=== PATIENT | female | born 1970 | race Caucasian/White ===

== ENCOUNTER 2019-05-31 19:46 | Emergency (ER) | payer OTHER ==
[2019-05-31 19:49] VITALS: BP 150/74; PULSE 68; TEMP 97.9; BMI 32.8
[2019-05-31] MEDS ORDERED: KETOROLAC TROMETHAMINE 30 MG/1 ML VIAL IVPUSH ONE (20:08)
[2019-05-31] MEDS ORDERED: SODIUM CHLORIDE 1,000 ML IV STA (20:08)
--- NOTE | 2019-05-31 20:08 | PDOC ---
History of Present Illness - General Chief Complaint: Pain, Acute Stated Complaint: SEND BY URGENT CARE/ABD PAIN Time Seen by Provider: 05/31/19 19:58 History Source: Patient Exam Limitations: No Limitations - History of Present Illness Initial Comments: Cynthia Quarles is a 48 yo obese F who denies having any pmh who presents to the [facility] er from urgent care saying she thinks she has a kidney stone. She endorses left lower flank pain with radiation to her groin. She has no personal hx of kidney stones but she has a strong family hx of kidney stones in her brother, sister and father. the patient states she thinks her urine looks dark as well. She also endorses dysuria, frequency, and urgency. The patient states that her symptoms have been slowly worsening over the past week. She endorses a fever this past but not since. She has not taken any meds for her pain or fever as she doesn't like taking medications in general. The patient states that she had an US earlier today which showed mild hydronephrosis and was referred here to get a CT scan. Denies chest pain, SOB, difficulty breathing, headache, nausea, vomiting, blurry vision, leg swelling, history of STDs [place] [facility] [place]: chole[place] Social Hx: Denies smoking, drinking, or other substance usage Allergies: NKA, NKDA Past History - Past Medical History Allergies/Adverse Reactions: Allergies Allergy/AdvReac Type Severity Reaction Status Date / Time No Known Allergies Allergy Verified 05/31/19 19:50 COPD: No - Surgical History Cholecystectomy: Yes - Psycho Social/Smoking Cessation Hx Smoking History: Never smoked Review of Systems - Review of Systems Able to Perform ROS?: Yes Comments:: CONSTITUTIONAL: Absent: fever, no chills, no fatigue EYES: Absent: visual changes ENT: Absent: ear pain, no sore throat CARDIOVASCULAR: Absent: chest pain, no palpitations RESPIRATORY: Absent: cough, no SOB GI: Present: Abdominal pain Absent: no nausea, no vomiting, no constipation, no diarrhea GENITOURINARY: Present: hematuria, dysuria, frequency MUSKULOSKELETAL: Present: Back pain Absent: no arthralgia, no myalgia SKIN: Absent: rash NEURO: Absent: headache *Physical Exam - Vital Signs Last Vital Signs Temp Pulse Resp BP Pulse Ox 97.9 F 68 18 150/74 97 05/31/19 19:47 05/31/19 19:47 05/31/19 19:47 05/31/19 19:47 05/31/19 19:47 - Physical Exam Comments: GENERAL: Well-appearing, well-nourished. No apparent distress. HEENT: Normocephalic, atraumatic. PERRL, EOM intact. CARDIOVASCULAR: Normal S1, S2. Regular rate and rhythm. PULMONARY: No evidence of respiratory distress. Lungs clear to auscultation bilaterally. No wheezing, rales or rhonchi. ABDOMEN: Mild LLQ abdominal TTP. + left sided CVA TTP. EXTREMITIES: Normal ROM in all four extremities. No gross deformities. SKIN: Warm, dry. No rash NEUROLOGICAL: No focal neurological deficits. ED Treatment Course - LABORATORY CBC & Chemistry Diagram: 05/31/19 20:15 05/31/19 20:15 - RADIOLOGY Radiograph Interpretation: Spiral CT: Renal stone CT without contrast Clinical information: evaluate for obstructing stone Multiplanar imaging was performed. No intravenous or enteric contrast was administered. No prior imaging studies are available at this facility for direct comparison. There is no hydroureteronephrosis. No discrete urinary tract calculus is seen. The kidneys, adrenal glands, liver, spleen, and pancreas demonstrate no definite noncontrast pathology. Small left renal cortical cyst. There is no aortic aneurysm. No obvious lymphadenopathy is seen. No gross mass lesion is identified on noncontrast imaging. Status post cholecystectomy. No biliary tract dilatation is identified. No evidence of pneumoperitoneum, free intraperitoneal fluid or bowel obstruction. The appendix appears unremarkable. No CT evidence of acute diverticulitis or obvious acute colitis. There is no gross noncontrast small bowel abnormality. Small uterine leiomyomas. Small umbilical hernia containing fat only. The visualized osseous structures demonstrate no obvious acute CT pathology. Impression: No CT evidence of urolithiasis or obstructive uropathy. Status post cholecystectomy. Medical Decision Making - Medical Decision Making Cynthia Quarles is a 48 yo obese F who denies having any pmh who presents to the [facility] er from urgent care saying she thinks she has a kidney stone. She endorses left lower flank pain with radiation to her groin. She has no personal hx of kidney stones but she has a strong family hx of kidney stones in her brother, sister and father. the patient states she thinks her urine looks dark as well. She also endorses dysuria, frequency, and urgency. The patient states that her symptoms have been slowly worsening over the past week. She endorses a fever this past but not since. She has not taken any meds for her pain or fever as she doesn't like taking medications in general. The patient states that she had an US earlier today which showed mild hydronephrosis and was referred here to get a CT scan. Denies chest pain, SOB, difficulty breathing, headache, nausea, vomiting, blurry vision, leg swelling, history of STDs Vital Signs Temp Pulse Resp BP Pulse Ox 97.9 F 68 18 150/74 97 05/31/19 19:47 05/31/19 19:47 05/31/19 19:47 05/31/19 19:47 05/31/19 19:47 DDx IBNLT: UTI/Pylo, kidney stone, infected stone, obstructing stone, KIRILL, electrolyte/metabolic disturbance, hydronephrosis Plan: Labs, urine, analgesia, IV hydration, Spiral CT, re-assess. Labs: Cbc normal. Mildly elevated BUN - hydrating patient. Urine: 1+ blood but no signs of infection with negative LE and nitrite. Negative HCG. CT: No evidence of acute pathology, no hydroureterolithiasis. Re-assessment: Patient feels much better after analgesia and IV hydration. Disposition: Home with PCP and Uro fu Discharge - Discharge Information Problems reviewed: Yes Clinical Impression/Diagnosis: Left flank pain Condition: Stable Disposition: HOME - Admission No - Follow up/Referral Referrals: ON STAFF,NOT [Primary Care Provider] - Paulo Willoughby MD [Staff Physician] - - Patient Discharge Instructions Patient Printed Discharge Instructions: Kidney Stones (Alternative Therapy), Kidney Stones -- Adult, DI for Flank Pain Additional Instructions: We did a cat scan and did not find any kidney stones. Your urine showed a small amount of blood suggestive of a possible kidney stone that might have already passed. We gave you the number for a urologist to call and schedule an appointment with. Please follow up with both your primary care doctor and a urologist in the next 3 to 5 days. Come back to the ER immediately if your pain worsens or you have any other new or worsening concerns. Thank you for coming to the [facility] ER. We hope you feel better soon! Print Language: DIVEHI - Post Discharge Activity
--- NOTE | 2019-05-31 20:24 | PDOC ---
Attending Attestation - Resident Resident Name: Neel Olivia - ED Attending Attestation I have performed the following: I have examined & evaluated the patient, The case was reviewed & discussed with the resident, I agree w/resident's findings & plan - HPI HPI: 05/31/19 21:42 Pt comes with left sided flank pain and strong fam hx of kidney stones. She has never had kidney stones, only cholelithiasis Pt has Brother and Dad with renal stones. She has no dysuria; No fever at this time. Pt did no heavy liftingl she works as a realtor for herself. She has no dehydration or decreased liquid intake Pt appears well otherwise. - Physicial Exam PE: 05/31/19 21:45 Agree with resident exam Pt is afebrile Pt has no flank pain at this time with either palpation or percussion. She describes a sharp pain that comes in the left low back. Doesnt radiate anywhere. - Medical Decision Making 05/31/19 21:48 Home with NSAIDS ; no need for abx. 05/31/19 21:48 follow with urology as needed, we will give you a referral to [facility]; or with your PMD in [place].
[2019-05-31] MEDS ORDERED: KETOROLAC TROMETHAMINE 60 MG/2 ML VIAL ONE (20:45)
[2019-05-31 20:55] LABS: BASO % 1.1 % (0-2.0); EOS % 6.8 % (0-4.5); HEMATOCRIT 45.4 % (32.4-45.2); HEMOGLOBIN 15.2 GM/dL (10.7-15.3); LYMPH % 31.3 % (8-40); MCH 29.7 pg (25.7-33.7); MCHC 33.4 g/dl (32.0-36.0); MEAN CELL VOLUME 88.7 fl (80-96); MEAN PLT VOLUME 8.4 fl (7.5-11.1); MONO % 8.9 % (3.8-10.2); NEUT % 51.9 % (42.8-82.8); PLATELET COUNT 334 K/MM3 (134-434); RBC 5.13 M/mm3 (3.60-5.2); RDW 14.5 % (11.6-15.6); WHITE BLOOD COUNT 6.4 K/mm3 (4.0-10.0)
[2019-05-31 21:02] LABS: EPI CELLS 2.3 /HPF (0-5/HPF); HYALINE CASTS 2 /lpf (0-8); PH,URINE 5.5 (5.0-8.0); URINE APPEARANCE CLEAR; URINE BACTERIA 43.3 /hpf (NEGATIVE); URINE BILIRUBIN NEGATIVE (NEGATIVE); URINE COLOR YELLOW; URINE GLUCOSE (UA) NEGATIVE (NEGATIVE); URINE KETONE NEGATIVE (NEGATIVE); URINE LEUK ESTERASE NEGATIVE (NEGATIVE); URINE NITRITE NEGATIVE (NEGATIVE); URINE PROTEIN NEGATIVE (NEGATIVE); URINE WBC 1 /hpf (0-5)
[2019-05-31 21:23] LABS: ALBUMIN 4.3 g/dl (3.4-5.0); BILIRUBIN,TOTAL 0.3 mg/dL (0.2-1); CREATININE 0.7 mg/dL (0.55-1.3); POTASSIUM 4.1 mmol/L (3.5-5.1); TOT PROT 8.1 g/dl (6.4-8.2); URINE RBC 5.9 /hpf (0-4)
== END 2019-05-31 22:31 | disposition home or self-care (01) ==
LOC: JER 19:46
PROC: 3E0333Z Introduction of Anti-inflammatory into Peripheral Vein, Percutaneous Approach (ICD-10-PCS; principal; 2019-05-31)
DX: R10.9 Unspecified abdominal pain (principal)
CPT/HCPCS: 36415; 74176-TC; 80053; 81003; 83690; 84703; 85025; 87086; 99281-25; J7030

== ENCOUNTER 2023-04-27 05:12 | Day surgery (SDC) | payer OTHER ==
[2023-04-25 15:13] VITALS: BMI 30.8
[2023-04-27 08:40] VITALS: RESP 16; TEMP 98.1
[2023-04-27 09:16] VITALS: BP 111/55; PULSE 60
== END 2023-04-27 09:45 | disposition home or self-care (01) ==
LOC: JASU-ENDO 05:12
PROVIDERS: ATTEND Internal Medicine Gastroenterology
PROC: 0DB98ZX Excision of Duodenum, Via Natural or Artificial Opening Endoscopic, Diagnostic (ICD-10-PCS; 2023-04-27)
PROC: 0DB68ZX Excision of Stomach, Via Natural or Artificial Opening Endoscopic, Diagnostic (ICD-10-PCS; 2023-04-27)
PROC: 0DJD8ZZ Inspection of Lower Intestinal Tract, Via Natural or Artificial Opening Endoscopic (ICD-10-PCS; principal; 2023-04-27 08:00)
DX: Z12.11 Encounter for screening for malignant neoplasm of colon (principal); K29.50 Unspecified chronic gastritis without bleeding
CPT/HCPCS: 43239; G0121; 88305-TC; 88342-TC